=== PATIENT | male | born 1955 | race Caucasian/White ===

== ENCOUNTER 2017-04-29 11:57 | Emergency (ER) | payer BC ==
--- NOTE | 2017-04-29 12:41 | UC ---
Lower Extremity/Ankle HPI - HPI Summary HPI Summary: 61 year old male presents with complains of severe right calf pain/swelling. I will send him to the ER. - History of Current Complaint Stated Complaint: RIGHT LEG CALF PAIN Time Seen by Provider: 04/29/17 12:41 Onset/Duration: Sudden Onset Severity Initially: Moderate Severity Currently: Moderate Pain Scale Used: 0-10 Numeric - 5 Aggravating Factor(s): Standing Alleviating Factor(s): Rest Able to Bear Weight: Yes - Allergies/Home Medications Allergies/Adverse Reactions: Allergies Allergy/AdvReac Type Severity Reaction Status Date / Time hay fever Allergy Congestion Uncoded 04/29/17 12:52 PMH/Surg Hx/FS Hx/Imm Hx Previously Healthy: Yes Review of Systems Constitutional: Negative Skin: Negative Eyes: Negative ENT: Negative Respiratory: Negative Cardiovascular: Negative Gastrointestinal: Negative Genitourinary: Negative Motor: Negative Neurovascular: Negative Musculoskeletal: Edema, Other: - RIGHT CALF PAIN Neurological: Negative Psychological: Negative All Other Systems Reviewed And Are Negative: Yes Physical Exam Triage Information Reviewed: Yes Lower Extremity Course/Dx - Differential Dx/Diagnosis Provider Diagnoses: RIGHT CALF SWELLING/PAIN Discharge - Discharge Plan Condition: Stable Disposition: HOME Patient Education Materials: Deep Venous Thrombosis (ED) Referrals: Josemanuel Sebastian MD [Primary Care Provider] - Additional Instructions: PLEASE GO TO ER TO RULE OUT DVT.
[2017-04-29 12:52] VITALS: BP 141/96
== END 2017-04-29 13:05 | disposition home or self-care (01) ==
LOC: UCCORT 11:57
DX: R60.0 Localized edema (principal); M79.661 Pain in right lower leg
CPT/HCPCS: 99201; G0463

== ENCOUNTER 2018-03-29 09:43 | Day surgery (SDC) | payer BC ==
[~2018-03-29 09:43] MED LIST: Buffered Lidocaine 0.9% SYRIN* 5 ML/SYR SYRINGE INTRADERM ONE; Dexamethasone IV* 4 MG/ML 1 ML (4 MG) IV SLOW PU ONE; Famotidine IV* 10 MG/ML 2 ML (20 mg) IV ONE
[2018-03-29] MEDS ORDERED: Dexamethasone IV* 4 MG/ML 1 ML (4 MG) ONE ×2 (09:49→09:59)
[2018-03-29] MEDS ORDERED: Famotidine IV* 10 MG/ML 2 ML (20 mg) ONE ×2 (09:49→09:59)
[2018-03-29] MEDS ORDERED: HYDROcodone/ACETAMIN 5-325 MG* 1 TAB PO PRN (12:01)
[2018-03-29] MEDS ORDERED: Naloxone* 0.4 MG/ML 1 ML VIAL IV PRN (12:01)
[2018-03-29] MEDS ORDERED: PROCHLORPERAZINE INJ 5 MG/ML 2 ML VIAL IV PRN (12:01)
[2018-03-29] MEDS ORDERED: oxyCODONE/Acetamin 5/325 MG* TAB PO PRN (12:01)
[2018-03-29] MEDS ORDERED: fentaNYL* 50 MCG/ML 2 ML VIAL (100 MCG VIAL) IV PRN (12:01)
[2018-03-29] MEDS ORDERED: Ibuprofen TAB* 600 MG PO PRN (12:01)
[2018-03-29] MEDS ORDERED: Lidocain 1% EPI 1:100,000 * 30 ML MDV ONE (12:03)
[2018-03-29] MEDS ORDERED: Triamcinolone Acetonide* 40 MG/ML 1 ML VIAL ONE (12:03)
[2018-03-29] MEDS ORDERED: EPINEPHRINE 1 MG/ML 1 ML VIAL ONE (12:03)
[2018-03-29] MEDS ORDERED: Midazolam* 1 MG/ML 2 ML VIAL (2 MG) ONE (12:11)
[2018-03-29] MEDS ORDERED: fentaNYL* 50 MCG/ML 2 ML VIAL (100 MCG VIAL) ONE (12:11)
[2018-03-29] MEDS ORDERED: Propofol* 10 MG/ML 20 ML BTL IV PUSH ONE (12:20)
[2018-03-29] MEDS ORDERED: Lidocaine 2% PF * 5 ML VIAL ONE (12:20)
[2018-03-29] MEDS ORDERED: Mivacurium Chloride* 20 MG/10 ML VIAL IV ONE (12:23)
[2018-03-29] MEDS ORDERED: Ondansetron INJ* 2 MG/ML VIAL ONE (12:49)
[2018-03-29 14:07] VITALS: BP 157/98
--- NOTE | 2018-03-30 01:28 | OP ---
DATE OF OPERATION: 03/29/18 - SDS DATE OF : 53 SURGEON: Diego Ortega MD PRE-OP DIAGNOSIS: POST-OP DIAGNOSIS: OPERATIVE PROCEDURE: Microlaryngoscopy and injection of vocal cord granuloma. 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 He had been on antireflux regimen. DESCRIPTION OF PROCEDURE: The patient was taken to the operating room, general anesthesia was given, the patient was intubated. Larynx was suspended. It was difficult with his anatomy to completely visualize the arytenoid area. I therefore infiltrated Kenalog 40 mg per mL, approximately 2 mL into the region of the arytenoid and the vocal process of the arytenoid. This was done on the right side. The laryngeal instrument was removed. The patient was awakened, extubated and sent to the recovery room in stable condition. Instrument and sponge counts were correct. Blood loss minimal. [id number] #: [id number] MTDD
== END 2018-03-29 14:09 | disposition home or self-care (01) ==
LOC: OR 09:43
PROVIDERS: ATTEND Otolaryngology
DX: J38.3 Other diseases of vocal cords (principal); K21.9 Gastro-esophageal reflux disease without esophagitis; J37.0 Chronic laryngitis; Z87.891 Personal history of nicotine dependence; E78.5 Hyperlipidemia, unspecified
CPT/HCPCS: J1100; J2250; J2405; J2704; J3010; J3301

== ENCOUNTER 2018-05-10 12:50 | Day surgery (SDC) | payer BC ==
[~2018-05-10 12:50] MED LIST changes: -Dexamethasone IV* 4 MG/ML 1 ML (4 MG) IV SLOW PU ONE; -Famotidine IV* 10 MG/ML 2 ML (20 mg) IV ONE; +Sodium Citrate/Citric Acid* 15 ML UDC PO ONE
[2018-05-10] MEDS ORDERED: Sodium Citrate/Citric Acid* 15 ML UDC ONE (13:05)
[2018-05-10] MEDS ORDERED: Oxymetazoline 0.05% NASAL SPR* 15 ML BTL ONE ×2 (14:22→15:57)
[2018-05-10] MEDS ORDERED: Lidocain 1% EPI 1:100,000 * 30 ML MDV ONE (14:23)
[2018-05-10] MEDS ORDERED: Lidocaine 4% TOPICAL* 50 ML TOP.SOLN ONE (14:42)
[2018-05-10] MEDS ORDERED: Lidocaine 2% JELLY* 20 ML (for OR use) ONE (15:34)
[2018-05-10] MEDS ORDERED: Lidocaine 2% PF * 5 ML VIAL ONE (15:34)
[2018-05-10] MEDS ORDERED: fentaNYL* 50 MCG/ML 2 ML VIAL (100 MCG VIAL) ONE (15:44)
[2018-05-10] MEDS ORDERED: Midazolam* 1 MG/ML 2 ML VIAL (2 MG) ONE ×2 (15:44→15:47)
[2018-05-10] MEDS ORDERED: Naloxone* 0.4 MG/ML 1 ML VIAL IV PRN (16:30)
[2018-05-10 16:40] VITALS: BP 123/76
--- NOTE | 2018-05-11 01:32 | OP ---
DATE OF OPERATION: 05/10/18 - SDS DATE OF : 53 SURGEON: Diego Ortega MD ANESTHESIA: MAC anesthesia and topical lidocaine. PRE-OP DIAGNOSIS: Right vocal cord lesion. POST-OP DIAGNOSIS: Right vocal cord lesion. OPERATIVE PROCEDURE: CO2 laser flexible endoscopy of excision of right vocal cord lesion. 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 I had previously attempted to do this under direct visualization, unfortunately was a difficult airway and the patient's procedure had to be abandoned. DESCRIPTION OF PROCEDURE: The patient was taken to the operating room. Anesthesia was given with MAC anesthesia and topical lidocaine. I introduced a flexible laryngoscope through the right nares. The guidewire for the CO2 laser was then passed through separate channel. Blazer was 4 elizalde setting continuous. Once identifying the lesion, I lasered it away majority of the lesion with CO2 laser until it was completely charred. The scope was then removed. The patient awakened further and sent to recovery room in stable condition. Instrument and sponge counts were correct. Blood loss minimal. No complications. [id number] #: [id number] MTDD
== END 2018-05-10 16:48 | disposition home or self-care (01) ==
LOC: OR 12:50
PROVIDERS: ATTEND Otolaryngology
DX: J38.3 Other diseases of vocal cords (principal); Z87.891 Personal history of nicotine dependence; E78.5 Hyperlipidemia, unspecified; K21.9 Gastro-esophageal reflux disease without esophagitis
CPT/HCPCS: A9270-GY; J2250; J3010